=== PATIENT | female | born 1995 | race Caucasian/White ===

== ENCOUNTER 2017-01-28 15:41 | Emergency (ER) | payer OTHER ==
[~2017-01-28] VITALS: Ht 167.6 cm; Wt 53.2 kg
[2017-01-28 15:53] VITALS: BP 126/80
== END 2017-01-28 16:40 | disposition home or self-care (01) ==
LOC: ED 15:41
DX: H93.12 Tinnitus, left ear (principal); V48.6XXA Car passenger injured in noncollision transport accident in traffic accident, initial encounter; Z23 Encounter for immunization